=== PATIENT | female | born 1990 | race Two or more races ===

== ENCOUNTER 2020-05-05 18:00 | Emergency (ER) | payer SELFPAY ==
[~2020-05-05] VITALS: Ht 160 cm; Wt 52.9 kg
--- NOTE | 2020-05-05 18:08 | NUR ---
pt ambulated to room with a steady gait. Instructed to change into hospital gown.
--- NOTE | 2020-05-05 18:18 | NUR ---
pt in with C/O of abd pain. pt states that she has taken multiple pregnacy test and they have all been negative. pt also verbalized that she recently been out "shraing drinks with friends". pt verbalized she's is having "about normal" menstral cycle currently.
--- NOTE | 2020-05-05 18:53 | NUR ---
BEDSIDE REPORT FROM JAIRO JAEGER, PT CARE TRANSFERRED AT THIS TIME.
[2020-05-05 19:20] VITALS: BP 118/53
--- NOTE | 2020-05-05 19:20 | NUR ---
late entry: Faisal TELLEZ at for US. RN present as well. Pt tolerated well, after US asked RN "how long will the urine take, i want to leave". LETI, WCTM.
[2020-05-05 19:48] LABS: MICROSCOPIC NOT IND
--- NOTE | 2020-05-05 19:59 | NUR ---
RN to BS, pt no longer present in room, no belongings left in room. pt assumed to have eloped at this time.
== END 2020-05-05 20:01 | disposition left against medical advice (07) ==
LOC: ED 19:30
DX: O26.891 Other specified pregnancy related conditions, first trimester (principal); R10.9 Unspecified abdominal pain; R14.0 Abdominal distension (gaseous); Z3A.00 Weeks of gestation of pregnancy not specified
CPT/HCPCS: 81003; 99284